=== PATIENT | male | born 1980 | race Caucasian/White ===

== ENCOUNTER 2016-08-12 12:19 | Emergency (ER) | payer OTHER ==
[~2016-08-12] VITALS: Ht 177.8 cm; Wt 73.0 kg
[2016-08-12 12:21] VITALS: Ht 177.8 cm; Wt 73.0 kg
[2016-08-12] MEDS ORDERED: IMIQ1CRE14 TOP (14:02)
--- NOTE | 2016-08-12 14:04 | ERD ---
ER Documentation Chief Complaint Date/Time DATE: 08/12/16 TIME: 14:03 Chief Complaint GENITAL PROBLEM HPI This 35-year-old male complains of bumps on his penis for last few months. May have started after sexual intercourse. Denies any penile discharge, fevers, dysuria. ROS All systems reviewed and are negative except as per history of present illness. Medications Home Meds Active Scripts Imiquimod (Imiquimod) 5% Cream.pack, 1 PACKET TOP 3X/ WEEK for 28 Days, EA Apply to lesions at night and wash off in the morning Friday for 1 month. Prov:BENNIE BRAND MD 08/12/16 Physical Exam Vitals Vital Signs Date Time Temp Pulse Resp B/P Pulse Ox O2 Delivery O2 Flow Rate FiO2 08/12/16 12:21 97.5 72 18 120/67 98 Physical Exam Const: [] Alert, [id number] per Head: Atraumatic Eyes: Normal Conjunctiva ENT: Normal External Ears, Nose and Mouth. Neck: Full range of motion..~ No meningismus. Resp: Clear to auscultation bilaterally Cardio: Regular rate and rhythm, no murmurs Abd: Soft, non tender, non distended. Normal bowel sounds Skin: No petechiae or rashes. There are scattered verruca lesions at the base of the shaft of the penis and one on the left shaft. There is no erythema , vesicles, induration and no penile discharge. Testicles nontender normal size and descended bilaterally. Back: No midline or flank tenderness Ext: No cyanosis, or edema Neur: Awake and alert Psych: Normal Mood and Affect Procedures/MDM Patient presents with signs and symptoms of genital condyloma. He will be given a prescription of Aldara but patient was given additional option of cryotherapy and is referred to local [facility]. Patient does not have any signs or symptoms of acute abdomen, sepsis, life-threatening rashes , purpura. The patient was stable with no new complaints during the ER course. Clinically, there is no current evidence to suggest meningitis, sepsis, acute abdomen, pneumonia, acute coronary syndrome, pulmonary embolism, or any other emergent condition appearing to require further evaluation or hospitalization. The patient should certainly return for any new or worsening symptoms per the aftercare instructions. They should otherwise follow-up with her primary care doctor for reevaluation this week. Departure Diagnosis: Primary Impression: Genital condyloma, male Condition: Stable Patient Instructions: Genital Warts (Condyloma) Referrals: [facility] YOU HAVE RECEIVED A MEDICAL SCREENING EXAM AND THE RESULTS INDICATE THAT YOU DO NOT HAVE A CONDITION THAT REQUIRES URGENT TREATMENT IN THE EMERGENCY DEPARTMENT. FURTHER EVALUATION AND TREATMENT OF YOUR CONDITION CAN WAIT UNTIL YOU ARE SEEN IN YOUR DOCTORS OFFICE WITHIN THE NEXT 1-2 DAYS. IT IS YOUR RESPONSIBILITY TO MAKE AN APPOINTMENT FOR FOLOW-UP CARE. IF YOU HAVE A PRIMARY DOCTOR --you should call your primary doctor and schedule an appointment IF YOU DO NOT HAVE A PRIMARY DOCTOR YOU CAN CALL OUR PHYSICIAN REFERRAL HOTLINE AT IF YOU CAN NOT AFFORD TO SEE A PHYSICIAN YOU CAN CHOSE FROM THE FOLLOWING [facility] [id number] [facility] [address] [facility] [address] [facility] [address] [facility] [address] [facility]. [facility] [address] Additional Instructions: Additional options are to have lesions frozen at clinic. Recheck otherwise for new or worsening symptoms BENNIE BRAND MD Aug 12, 2016 14:04
== END 2016-08-12 14:13 | disposition home or self-care (01) ==
LOC: FTE 12:19
DX: A63.0 Anogenital (venereal) warts (principal)
CPT/HCPCS: 99283